=== PATIENT | female | born 1985 | race Caucasian/White ===

== ENCOUNTER 2017-03-19 08:17 | Emergency (ER) | payer MEDICAID, OTHER ==
[~2017-03-19] VITALS: Ht 167.6 cm; Wt 79.0 kg
[2017-03-19 08:26] VITALS: Ht 167.6 cm; Wt 79.0 kg
[2017-03-19] MEDS ORDERED: IBUP-1542 PO (08:49)
[2017-03-19] MEDS ORDERED: PRED20TA PO (08:49)
[2017-03-19] MEDS ORDERED: AMO500 PO (08:49)
--- NOTE | 2017-03-19 08:58 | ERD ---
ER Documentation Chief Complaint Date/Time DATE: 03/19/17 TIME: 08:53 Chief Complaint CMAE IN VIA INTAKE DUE TO SORE THROAT AND LEFT EAR PAIN HPI Patient is a 32-year-old female who presents to the emergency department for throat pain and left ear pain 1 day. Patient denies any drooling, trismus or hyperextension of her neck. Patient reports tactile fevers. She states she last took Tylenol 1 tablet 3 AM this morning. Patient denies any drainage or active bleeding from her ear. Patient denies any rhinorrhea, cough, abdominal pain, nausea, vomiting or LOC. Patient denies any sick contacts. No recent travel. ROS All systems reviewed and are negative except as per history of present illness. Medications Home Meds Active Scripts Ibuprofen* (Motrin*) 600 Mg Tab, 600 MG PO Q6, #30 TAB Prov:MARIOLA JASSO PA-C 03/19/17 Amoxicillin* (Amoxicillin*) 500 Mg Cap, 500 MG PO BID for 7 Days, CAP Prov:MARIOLA JASSO PA-C 03/19/17 Prednisone* (Prednisone*) 20 Mg Tab, 40 MG PO DAILY for 5 Days, TAB Prov:MARIOLA JASSO PA-C 03/19/17 Allergies Allergies: Coded Allergies: No Known Allergy (Unverified , 10/11/15) FmHx Family History: No diabetes Physical Exam Vitals Vital Signs Date Time Temp Pulse Resp B/P Pulse Ox O2 Delivery O2 Flow Rate FiO2 03/19/17 09:24 98.3 89 20 119/75 99 Room Air 03/19/17 08:26 100.3 109 20 130/80 99 Physical Exam GENERAL: Well-developed, well-nourished female. Appears in no acute distress. Speaking in full sentences. HEAD: Normocephalic, atraumatic. No deformities or ecchymosis. EYE: Pupils equal, round, and reactive to light. EOMs intact. No conjunctival erythema. No eye discharge. ENT: External ear without any masses or tenderness. Auditory canals clear bilaterally. TM visualized bilaterally, non-erythematous, non-bulging. Nasal mucosa pink with no discharge. Oropharynx is erythematous with bilateral tonsillar swelling, 2+ bilaterally. Few exudates noted on the left tonsil. No uvula deviation. No kissing tonsils. No trismus. No drooling. NECK: Supple. Normal ROM of the neck. No hyperextension of the neck. LUNG: Clear to auscultation bilaterally. No rhonchi, wheezing, rales or coarse breath sounds. HEART: Regular rate and rhythm. No murmurs, rubs or gallops. BACK: No midline tenderness. EXTREMITIES: Equal pulses bilaterally. No peripheral clubbing, cyanosis or edema. No unilateral leg swelling. NEUROLOGIC: Alert and oriented to person, place and time. Moving all four extremities. 5/5 strength in all extremities. Normal speech. Steady gait. SKIN: Normal color. Warm and dry. No rashes or lesions. Results 24 hrs Current Medications Medications (Trade) Dose Ordered Sig/Tawnya Route PRN Reason Start Time Stop Time Status Last Admin Dose Admin Ibuprofen (Motrin) 600 mg ONCE ONCE PO 03/19/17 09:00 03/19/17 09:01 DC 03/19/17 09:01 Procedures/MDM MEDICAL DECISION MAKING: This is a 32-year-old female who presents the emergency department for concerns of throat pain and left ear pain 1 day.. Vital signs were reviewed. Patient was noted to have a low-grade temperature of 100.3 Fahrenheit upon arrival. Patient's pulse was noted to be 109. Patient was not hypoxic. The patient does not have trismus, muffled voice, uvula deviation, unilateral tonsillar swelling, or drooling. No signs of neck swelling or hyperextension of the neck noted. ENT exam revealed bilateral 2+ tonsillar swelling with a few exudates noted on the left tonsil. Ear exam was unremarkable. Patient was given ibuprofen here in the emergency department. Patient's temperature and pulse were noted to be improved prior to discharge. I do not believe that this is sepsis at this time. Patient did have significant swelling of her tonsils, I will treat the patient with a short course of prednisone and antibiotics. Given these findings, the patient's presentation is most consistent with presumed strep pharyngitis. I have a much lower clinical suspicion for epiglottitis, peritonsillar abscess, retropharyngeal abscess, Ludwigs angina, dental abscess, otitis media, meningitis. PRESCRIPTIONS: Prednisone, amoxicillin, ibuprofen DISCHARGE: At this time, patient is stable for discharge and outpatient management. Supportive therapies such as OTC throat lozenges and warm salt water gurgles were discussed. I have instructed the patient to follow-up with his/her primary care physician in 1-2 days. I have discussed with the patient the possibility of needing to see a specialist for further workup and imaging studies if symptoms persist. I have instructed the patient to promptly return to the ER for any new or worsening symptoms including increased pain, fever, nausea, vomiting, weakness or LOC. The patient and/or family expressed understanding of and agreement with this plan. All questions were answered. Home care instructions were provided. Departure Diagnosis: Primary Impression: Pharyngitis, streptococcal Condition: Stable Patient Instructions: Pharyngitis, Strep (Presumed) Referrals: [facility] YOU HAVE RECEIVED A MEDICAL SCREENING EXAM AND THE RESULTS INDICATE THAT YOU DO NOT HAVE A CONDITION THAT REQUIRES URGENT TREATMENT IN THE EMERGENCY DEPARTMENT. FURTHER EVALUATION AND TREATMENT OF YOUR CONDITION CAN WAIT UNTIL YOU ARE SEEN IN YOUR DOCTORS OFFICE WITHIN THE NEXT 1-2 DAYS. IT IS YOUR RESPONSIBILITY TO MAKE AN APPOINTMENT FOR FOLOW-UP CARE. IF YOU HAVE A PRIMARY DOCTOR --you should call your primary doctor and schedule an appointment IF YOU DO NOT HAVE A PRIMARY DOCTOR YOU CAN CALL OUR PHYSICIAN REFERRAL HOTLINE AT IF YOU CAN NOT AFFORD TO SEE A PHYSICIAN YOU CAN CHOSE FROM THE FOLLOWING [facility] [address] [facility]. [facility] [address] [facility]. [facility] [address] [facility] [facility] [address] [facility] [facility] [address] [facility] [facility]. [address] [facility]. [facility] YOU HAVE RECEIVED A MEDICAL SCREENING EXAM AND THE RESULTS INDICATE THAT YOU DO NOT HAVE A CONDITION THAT REQUIRES URGENT TREATMENT IN THE EMERGENCY DEPARTMENT. FURTHER EVALUATION AND TREATMENT OF YOUR CONDITION CAN WAIT UNTIL YOU ARE SEEN IN YOUR DOCTORS OFFICE WITHIN THE NEXT 1-2 DAYS. IT IS YOUR RESPONSIBILITY TO MAKE AN APPOINTMENT FOR FOLOW-UP CARE. IF YOU HAVE A PRIMARY DOCTOR --you should call your primary doctor and schedule and appointment IF YOU DO NOT HAVE A PRIMARY DOCTOR YOU CAN CALL OUR PHYSICIAN REFERRAL HOTLINE AT . IF YOU CAN NOT AFFORD TO SEE A PHYSICIAN YOU CAN CHOSE FROM THE FOLLOWING [facility] INSTITUTIONS: [facility] [address] [place] [address] [facility] [address] [place] [address] [facility] [address] [place] [address] Additional Instructions: Call your primary care doctor TOMORROW for an appointment during the next 1-2 days.See the doctor sooner or return here if your condition worsens before your appointment time. MARIOLA JASSO PA-C Mar 19, 2017 08:58
[2017-03-19] MEDS ORDERED: IBUPROFEN 600 MG TAB PO ONE (09:00)
[2017-03-19 09:24] VITALS: BP 119/75; PULSE 89; RESP 20; TEMP 98.3
== END 2017-03-19 09:29 | disposition home or self-care (01) ==
LOC: FTE 08:17
DX: J02.0 Streptococcal pharyngitis (principal)
CPT/HCPCS: Z7502; Z7610; 99284

== ENCOUNTER 2017-12-17 12:17 | Emergency (ER) | END 2017-12-17 12:53 | disposition home or self-care (01) ==